=== PATIENT | male | born 1975 | race Hispanic/Latino ===

== ENCOUNTER 2018-06-12 09:42 | Outpatient (RCR) | payer BC | END 2018-06-28 | LOC: PT 09:42 | PROVIDERS: ATTEND Specialist | DX: S86.002A Unspecified injury of left Achilles tendon, initial encounter (principal); M25.572 Pain in left ankle and joints of left foot; M25.672 Stiffness of left ankle, not elsewhere classified; M62.81 Muscle weakness (generalized); R26.9 Unspecified abnormalities of gait and mobility ==

== ENCOUNTER 2019-07-26 10:11 | Emergency (ER) | payer SELFPAY ==
[~2019-07-26] VITALS: Ht 185.4 cm; Wt 166.0 kg
[2019-07-26] MEDS ORDERED: SODIUM CHLORIDE 0.9% 1000ML 1,000 ML IV STA (10:22)
[2019-07-26] MEDS ORDERED: ONDANSETRON HCL INJ 2MG/ML 2ML 2 MG/ML VIAL IV STA (10:22)
[2019-07-26] MEDS ORDERED: FLOMAX0.4 MG (10:24)
[2019-07-26] MEDS ORDERED: METFORMIN HCL500 MG (10:24)
[2019-07-26] MEDS ORDERED: ATORVASTATIN CA10 MG (10:24)
[2019-07-26] MEDS ORDERED: RELION NOV100 UNIT/1 (10:24)
[2019-07-26 11:01] LABS: BASOPHILS % 0.2 % (0.0-1.0); EOSINOPHILS # (AUTO) 0.3 (0.0-0.4); EOSINOPHILS % 2.7 % (0.0-6.0); HEMATOCRIT 45.1 % (38.2-49.6); HEMOGLOBIN 15.6 g/dL (14.0-18.0); LYMPHOCYTES % 32.6 % (18.0-39.1); MEAN CORPUSCULAR HEMOGLOBIN 29.5 pg (28-32); MEAN CORPUSCULAR HGB CONC 34.6 g/dL (31-35); MEAN CORPUSCULAR VOLUME 85.3 fL (81-99); MONOCYTES # (AUTO) 0.8 (0.2-0.8); MONOCYTES % 6.3 % (4.4-11.3); NEUTROPHILS # (AUTO) 7.1 (2.1-6.9); NEUTROPHILS % 57.8 % (38.7-80.0); PLATELET COUNT 336 x10e3/uL (140-360); RED BLOOD COUNT 5.29 x10e6/uL (4.3-5.7); RED CELL DISTRIBUTION WIDTH 12.3 % (11.7-14.4)
[2019-07-26 11:26] LABS: ALBUMIN 3.7 g/dL (3.5-5.0); ALBUMIN/GLOBULIN RATIO 0.8 (0.8-2.0); ANION GAP 13.6 mmol/L (8-16); CALCIUM 9.3 mg/dL (8.4-10.2); CREATININE, SERUM 1.32 mg/dL (0.72-1.25); POTASSIUM 3.6 mmol/L (3.5-5.1)
[2019-07-26] MEDS ORDERED: SODIUM CHLORIDE 0.9% 1000ML 1,000 ML ONE (11:30)
[2019-07-26] MEDS ORDERED: ONDANSETRON HCL INJ 2MG/ML 2ML 2 MG/ML VIAL IV ONE (11:45)
--- NOTE | 2019-07-26 12:24 | Diagnostic Imaging Report ---
EXAM: CT Abdomen and Pelvis WITHOUT intravenous contrast INDICATION: Right flank pain COMPARISON: None. TECHNIQUE: Abdomen and pelvis were scanned utilizing a multidetector helical scanner from the lung base to the pubic symphysis without administration of IV contrast. Coronal and sagittal reformations were obtained. IV CONTRAST: None ORAL CONTRAST: Water COMPLICATIONS: None RADIATION DOSE: Total DLP: 1586.0 mGy*cm Dose modulation, iterative reconstruction, and/or weight based adjustment of the mA/kV was utilized to reduce the radiation dose to as low as reasonably achievable. FINDINGS: LOWER THORAX: Normal. HEPATOBILIARY: Hepatomegaly to 21 cm. Mild diffuse hepatic steatosis. No focal liver lesion. Status post cholecystectomy. SPLEEN: No splenomegaly. PANCREAS: No focal masses or ductal dilatation. ADRENALS: No adrenal nodules. KIDNEYS/URETERS: Punctate bilateral renal calculi measure up to 4 mm. No ureteral calculi. No hydronephrosis or hydroureter. 1.6 cm exophytic right kidney lower pole lesion is indeterminate on this noncontrast study. PELVIC ORGANS/BLADDER: Unremarkable. PERITONEUM / RETROPERITONEUM: No free air or fluid. LYMPH NODES: No lymphadenopathy. VESSELS: Unremarkable. GI TRACT: Diverticulosis without CT evidence of diverticulitis. No abnormal bowel wall thickening. No bowel obstruction. BONES AND SOFT TISSUES: No acute osseous injury. No suspicious lytic or blastic lesion. Lumbarization of S1. Severe degenerative changes and grade 1 anterolisthesis at L5-S1. IMPRESSION: Bilateral nonobstructive renal calculi measuring up to 4 mm. No hydronephrosis or hydroureter. 1.6 cm exophytic right kidney lower pole lesion is indeterminate on this noncontrast study. Further evaluation can be made with a renal mass protocol CT on a nonurgent basis. Signed by: Bobbi Jeong MD on 07/26/2019 12:20 PM
[2019-07-26 14:00] LABS: BILIRUBIN,URINE NEGATIVE (NEGATIVE); CLARITY,URINE CLEAR (CLEAR); COLOR,URINE YELLOW (YELLOW); KETONES,URINE NEGATIVE (NEGATIVE); LEUKOCYTE ESTERASE ,URINE NEGATIVE (NEGATIVE); NITRITE,URINE NEGATIVE (NEGATIVE); PROTEIN,URINE DIPSTICK NEGATIVE (NEGATIVE); URINE UROBILINOGEN 1 mg/dL (0.2 - 1)
[2019-07-26 14:31] LABS: BACTERIA,URINE RARE /HPF; EPITHELIAL CELLS,URINE RARE /LPF
[2019-07-26 14:32] LABS: AMORPHOUS SEDIMENT,URINE FEW (FEW); HYALINE CASTS 0-1 (0-1)
== END 2019-07-26 13:50 | disposition home or self-care (01) ==
LOC: ER 10:11
DX: R10.84 Generalized abdominal pain (principal); R10.12 Left upper quadrant pain; R10.32 Left lower quadrant pain; R10.33 Periumbilical pain; R11.2 Nausea with vomiting, unspecified; R19.7 Diarrhea, unspecified; R14.2 Eructation
CPT/HCPCS: 36415; 74176; 80053; 81001; 82150; 83690; 85025; 87086; 99284; J2405; J7030